=== PATIENT | male | born 1990 | race African-American/Black ===

== ENCOUNTER 2019-01-13 06:47 | Emergency (ER) | payer SELFPAY ==
[~2019-01-13] VITALS: Ht 180.3 cm; Wt 76.0 kg
[2019-01-13 07:21] VITALS: BP 124/84
[2019-01-13] MEDS ORDERED: HYDROCODONE/ACETAMINOPHEN 5/325MG TABLET PO ONE (08:30)
== END 2019-01-13 10:35 | disposition home or self-care (01) ==
LOC: ER 09:47
DX: S16.1XXA Strain of muscle, fascia and tendon at neck level, initial encounter (principal); S43.401A Unspecified sprain of right shoulder joint, initial encounter; R41.82 Altered mental status, unspecified; J45.909 Unspecified asthma, uncomplicated; F12.10 Cannabis abuse, uncomplicated; F17.200 Nicotine dependence, unspecified, uncomplicated; V89.2XXA Person injured in unspecified motor-vehicle accident, traffic, initial encounter; Y93.89 Activity, other specified; Y92.89 Other specified places as the place of occurrence of the external cause; Y99.8 Other external cause status
CPT/HCPCS: 72040; 73030; 99283